=== PATIENT | male | born 1985 | race African-American/Black ===

== ENCOUNTER 2020-04-07 14:35 | Emergency (ER) | payer MEDICAID ==
[~2020-04-07] VITALS: Ht 180.3 cm; Wt 84.4 kg
[2020-04-07 15:10] VITALS: BP 119/85
--- NOTE | 2020-04-07 15:11 | NUR ---
ED Nurse Note:pt. c/o penial discharge and pain
[2020-04-07] MEDS ORDERED: Azithromycin 250mg tab ORAL ONE (15:15)
[2020-04-07] MEDS ORDERED: Bicillin LA 2.4MMU/4ML SYR IM ONE (15:15)
[2020-04-07] MEDS ORDERED: Lidocaine 1% MPF 10mg/ml 5ml INJ ONE (15:15)
--- NOTE | 2020-04-07 16:04 | Emergency Room Report ---
History of Present Illness General Chief Complaint: Male Urogenital Problems Source: Patient Present Illness HPI 34-year-old male with no known signal past medical history here complaining of 1 day of penile discharge reporting that it started after he was involved in a tree stand. Patient reports that the discharge is yellow. Denies any penile swelling, scrotal swelling or pain. Denies any penile lesions. Denies any dysuria frequency, hematuria. Denies any fever chills, diffuse abdominal pain, nausea or vomiting. Patient is interested in getting treated for the potential STDs. Patient is aware that we do not routinely test for sexually transmitted diseases STD however is interested in getting referred to clinics to get tested. Allergies: Coded Allergies: No Known Allergies (Unverified , 04/07/20) COVID-19 Screening Contact w/high risk pt: No Experienced COVID-19 symptoms?: No COVID-19 Testing performed [employer]: No Patient History Past Medical History: see triage record Past Surgical History: none Pertinent Family History: none Immunizations: UTD Reviewed Nursing Documentation: PMH: Agreed; PSxH: Agreed Nursing Documentation-PMH Past Medical History: No Stated History Review of Systems All Other Systems: negative except mentioned in HPI Physical Exam Vital Signs Date Time Temp Pulse Resp B/P (MAP) Pulse Ox O2 Delivery O2 Flow Rate FiO2 04/07/20 14:49 98.1 88 17 119/85 (96) 100 Room Air Sp02 EP Interpretation: reviewed, normal General Appearance: no apparent distress, alert, GCS 15, non-toxic Head: normocephalic, atraumatic Eyes: bilateral eye normal inspection, bilateral eye PERRL ENT: hearing grossly normal, normal pharynx, no angioedema, normal voice Neck: full range of motion, supple/symm/no masses Respiratory: chest non-tender, lungs clear, normal breath sounds, speaking full sentences Cardiovascular #1: regular rate, rhythm, no edema Gastrointestinal: normal bowel sounds, non tender, soft, non-distended, no guarding, no rebound Genitourinary: no CVA tenderness Musculoskeletal: back normal Neurologic: alert, motor strength/tone normal, oriented x3, sensory intact, responsive, speech normal Psychiatric: judgement/insight normal, memory normal, mood/affect normal, no suicidal/homicidal ideation Skin: no rash Lymphatic: no adenopathy Medical Decision Making PA Attestation All my diagnosis and treatment plans were reviewed ad discussed with my supervising physician Dr. Min Diagnostic Impression: Primary Impression: Penile discharge Additional Impression: Possible exposure to STD ER Course 34-year-old male with no known signal past medical history here complaining of 1 day of penile discharge reporting that it started after he was involved in a tree stand. Patient reports that the discharge is yellow. Denies any penile swelling, scrotal swelling or pain. Denies any penile lesions. Denies any dysuria frequency, hematuria. Denies any fever chills, diffuse abdominal pain, nausea or vomiting. Patient is interested in getting treated for the potential STDs. Patient is aware that we do not routinely test for sexually transmitted diseases STD however is interested in getting referred to clinics to get tested. Ddx considered but are not limited to: UTI,, chlamydia, Gonorrhea, syphilis, HIV, herpes 1 or 2 Vital signs: are WNL, pt. is afebrile H&PE are most consistent with : Possible exposure to STD, penile discharge ORDERS: At this time a urine specimen is needed as patient is experiencing STD symptoms no dysuria patient advised to follow-up with STD clinics for further evaluation and testing ED INTERVENTIONS: Rocephin, penicillin G, azithromycin DISCHARGE: At this time pt. is stable for d/c to home. Will provide printed p atient care instructions, and any necessary prescriptions. Care plan and follow up instructions have been discussed with the patient prior to discharge. Condom use advised, patient taking occasional therapy, follow-up primary care provider, patient symptoms return to the emergency room Last Vital Signs Date Time Temp Pulse Resp B/P (MAP) Pulse Ox O2 Delivery O2 Flow Rate FiO2 04/07/20 15:10 98.1 17 119/85 100 Room Air 04/07/20 14:49 88 Disposition: HOME, SELF-CARE Condition: Stable Patient Instructions: Chlamydia, Male, Gonorrhea, Syphilis Additional Instructions: Follow-up with your primary care provider, use condom, if worsening symptoms and return to the emergency room Justo Guevara Apr 07, 2020 16:04
[2020-04-07 16:40] VITALS: BP 119/85
--- NOTE | 2020-04-07 16:40 | NUR ---
ED Nurse Note: Pt cleared by health care Provider for discharge. DC instructions/prescription was given and explained to pt and verbalized understanding of teachings. All medical deviecs such as ID band removed. Pt is AAO x4, ambulatory and left with all personal belongings.
== END 2020-04-07 16:40 | disposition home or self-care (01) ==
LOC: EMR 15:03
DX: R36.9 Urethral discharge, unspecified (principal); Z20.2 Contact with and (suspected) exposure to infections with a predominantly sexual mode of transmission
CPT/HCPCS: 96372; 96374; J0696; Q0144; Z7502; 99284